=== PATIENT | male | born 1955 | race Two or more races ===

== ENCOUNTER 2018-01-15 11:10 | Inpatient (IN) | payer OTHER ==
[2018-01-15 11:59] VITALS: BMI 23.0
--- NOTE | 2018-01-15 13:40 | HP ---
CIWA Score - CIWA Score Nausea/Vomitin-Mild Nausea/No Vomiting Muscle Tremors: 4-Moderate,w/Arms Extend Anxiety: 4-Mod. Anxious/Guarded Agitation: 4-Moderately Restless Paroxysmal Sweats: 1-Minimal Palms Moist Orientation: 0-Oriented Tacttile Disturbances: 1-Very Mild Itch/Numbness Auditory Disturbances: 0-None Visual Disturbances: 0-None Headache: 1-Very Mild CIWA-Ar Total Score: 16 Admission ROS BHS - HPI Chief Complaint: alcohol withdrawal sx Allergies/Adverse Reactions: Allergies Allergy/AdvReac Type Severity Reaction Status Date / Time No Known Allergies Allergy Verified 01/15/18 13:38 History of Present Illness: 62 years old male with long history of alcohol nicotine dependence has hypertension, psoriasis, and anxiety is admitted to detox Exam Limitations: No Limitations - Ebola screening Have you traveled outside of the country in the last 21 days: No Have you had contact with anyone from an Ebola affected area: No Have you been sick,other than usual withdrawal symptoms: No Do you have a fever: No - Review of Systems Constitutional: Loss of Appetite, Changes in sleep, Unintentional Wgt. Loss, Unexplained wgt Loss EENT: reports: Cataracts (both eyes 2007), Blurred Vision (eye glasses) Respiratory: reports: SOB with Exertion, Productive cough (when smoking cigareet ) Cardiac: reports: No Symptoms Reported GI: reports: Nausea, Poor Fluid Intake, Abdominal cramping : reports: No Symptoms Reported Musculoskeletal: reports: No Symptoms Reported Integumentary: reports: Lesions (hands psoriasis) Neuro: reports: Tremors Endocrine: reports: No Symptoms Reported Hematology: reports: No Symptoms Reported Psychiatric: reports: Judgement Intact, Orientated x3, Anxious Other Systems: Reviewed and Negative Patient History - Patient Medical History Hx Anemia: No Hx Asthma: No Hx Chronic Obstructive Pulmonary Disease (COPD): No Hx Cancer: No Hx Cardiac Disorders: No Hx Congestive Heart Failure: No Hx Hypertension: Yes Hx Hypercholesterolemia: No Hx Pacemaker: No HX Cerebrovascular Accident: No Hx Seizures: No Hx Dementia: No Hx Diabetes: No Hx Gastrointestinal Disorders: No Hx Liver Disease: Yes (2018 liver cirrhosis) Hx Genitourinary Disorders: No Hx Sexually Transmitted Disorders: No Hx Renal Disease (ESRD): No Hx Thyroid Disease: No Hx Human Immunodeficiency Virus (HIV): No Hx Hepatitis C: No Hx Depression: Yes Hx Suicide Attempt: No Hx Bipolar Disorder: No Hx Schizophrenia: No - Patient Surgical History Past Surgical History: Yes Hx Neurologic Surgery: No Hx Cataract Extraction: Yes (bilaterally 2007) Hx Cardiac Surgery: No Hx Lung Surgery: No Hx Breast Surgery: No Hx Breast Biopsy: No Hx Abdominal Surgery: No Hx Appendectomy: Yes (age 42) Hx Cholecystectomy: No Hx Genitourinary Surgery: No Hx Orthopedic Surgery: No Anesthesia Reaction: No - PPD History Previous Implant?: Yes Documented Results: Negative w/o proof Implanted On Prior R Admission?: No PPD to be Administered?: Yes - Smoking Cessation Smoking history: Current every day smoker Have you smoked in the past 12 months: Yes Aproximately how many cigarettes per day: 10 Cigars Per Day: 0 Hx Chewing Tobacco Use: No Initiated information on smoking cessation: Yes 'Breaking Loose' booklet given: 01/15/18 - Substance & Tx. History Hx Alcohol Use: Yes Hx Substance Use: No Substance Use Type: Alcohol Hx Substance Use Treatment: No (first detox) Family Disease History - Family Disease History Family Disease History: Other: Father (), Mother () Other Family History: only child Admission Physical Exam BHS - Vital Signs Vital Signs: Vital Signs - 24 hr 01/15/18 11:57 Temperature 97.2 F L Pulse Rate 79 Respiratory 18 Rate Blood Pressure 129/83 - Physical General Appearance: Yes: Appropriately Dressed, Mild Distress, Alcohol on Breath , Thin, Tremorous, Irritable, Sweating, Anxious HEENTM: Yes: Hearing grossly Normal, Normocephalic, Normal Voice, Other (eye glasses) Respiratory: Yes: Chest Non-Tender, Lungs Clear, Normal Breath Sounds, No Respiratory Distress, No Accessory Muscle Use Neck: Yes: Supple, Trachea in good position Breast: Yes: Breasts Symetrical Cardiology: Yes: Regular Rhythm, Regular Rate, S1, S2 Abdominal: Yes: Normal Bowel Sounds, Non Tender, Flat Genitourinary: Yes: Within Normal Limits Back: Yes: Normal Inspection Musculoskeletal: Yes: full range of Motion, Gait Steady, Back pain, Muscle Pain Extremities: Yes: Normal Inspection, Normal Range of Motion, Non-Tender, Tremors Neurological: Yes: Fully Oriented, Alert, Motor Strength 5/5, Normal Response, Depressed Affect Integumentary: Yes: Warm, Rash (hands + popteal bilaterally) Lymphatic: Yes: Within Normal Limits - Diagnostic (1) Alcohol dependence with uncomplicated withdrawal Current Visit: Yes Status: Acute (2) Nicotine dependence Current Visit: Yes Status: Acute Qualifiers: Nicotine product type: cigarettes Substance use status: in withdrawal Qualified Code(s): F17.213 - Nicotine dependence, cigarettes, with withdrawal (3) Hypertension Current Visit: Yes Status: Chronic Qualifiers: Hypertension type: essential hypertension Qualified Code(s): I10 - Essential (primary) hypertension (4) Cataract Current Visit: Yes Status: Resolved Qualifiers: Cataract type: other Laterality: bilateral Qualified Code(s): H26.8 - Other specified cataract (5) Psoriasis Current Visit: Yes Status: Chronic Cleared for Admission BHS - Detox or Rehab S Level of Care: Medically Managed Detox Regimen/Protocol: Librium S Breath Alcohol Content Breath Alcohol Content: 0.038 Urine Drug Screen - Results Drug Screen Negative: Yes
[2018-01-15] MEDS ORDERED: chlordiazePOXIDE HCL 25 MG CAPSULE PO PRN (13:52)
[2018-01-15] MEDS ORDERED: LOPERAMIDE HCL 2 MG CAPSULE PO PRN (13:52)
[2018-01-15] MEDS ORDERED: P-EPHED 60MG/TRIPROLIDI 2.5MG TABLET PO PRN (13:52)
[2018-01-15] MEDS ORDERED: MAGNESIUM CITRATE 300 ML BOTTLE PO PRN (13:52)
[2018-01-15] MEDS ORDERED: ACETAMINOPHEN 325 MG TABLET (FP) PO PRN (13:52)
[2018-01-15] MEDS ORDERED: MAG HYDROX/AL HYDROX/SIMETH 30 ML UNIT-DOSE CUP PO PRN (13:52)
[2018-01-15] MEDS ORDERED: IBUPROFEN 400 MG TABLET (FP) PO PRN (13:52)
[2018-01-15] MEDS ORDERED: MAGNESIUM HYDROX 2400MG/30ML ORAL SUSPENSION 30 ML CUP PO PRN (13:52)
[2018-01-15] MEDS ORDERED: MENTHOL/PHENOL 1 EACH UD MM PRN (13:52)
[2018-01-15] MEDS ORDERED: NICOTINE POLACRILEX 2 MG GUM BC PRN (13:52)
[2018-01-15] MEDS ORDERED: guaiFENesin/D-METHORPHAN HB 10 ML UNIT-DOSE CUPS PO PRN (13:52)
[2018-01-15] MEDS: TRIAMCINOLONE ACET 0.1% OINT 15 GM TUBE TP SCH ×3 (15:30→22:23)
[2018-01-15] MEDS: NICOTINE 14 MG/24 HOURS TOPICAL PATCH TD SCH (15:48)
--- NOTE | 2018-01-15 17:13 | CONSULT ---
[facility] Psychiatric Consult - Data Date of interview: 01/15/18 Admission source: [facility] Identifying data: Patient is a 62 year old male, father of one, unemployed, financially supported by daughter, and living with his . This is patient's first admission to [facility]. Pt. admitted to for alcohol dependence. Substance Abuse History: Following information confirmed with Mr. Rae: - Smoking Cessation. Smoking history: Current every day smoker. Have you smoked in the past 12 months: Yes. Aproximately how many cigarettes per day: 10. Cigars Per Day: 0. Hx Chewing Tobacco Use: No. Initiated information on smoking cessation: Yes. 'Breaking Loose' booklet given: 01/15/18. - Substance & Tx. History. Hx Alcohol Use: Yes. Hx Substance Use: No. Substance Use Type : Alcohol. Hx Substance Use Treatment: No (first detox) Medical History: Liver Cirrhosis 2018, Appendectomy at age 42, Bilateral cataract extraction 2007 Psychiatric History: Patient denies h/o psychiatric hospitalization, outpatient care, and suicide attempt. Physical/Sexual Abuse/Trauma History: Denies. Mental Status Exam - Mental Status Exam Alert and Oriented to: Time, Place, Person Cognitive Function: Good Patient Appearance: Well Groomed Mood: Euthymic Affect: Mood Congruent Patient Behavior: Appropriate, Cooperative Speech Pattern: Appropriate Voice Loudness: Normal Thought Process: Goal Oriented Thought Disorder: Not Present Hallucinations: Denies Suicidal Ideation: Denies Homicidal Ideation: Denies Insight/Judgement: Poor Sleep: Fair Appetite: Fair Muscle strength/Tone: Normal Gait/Station: Normal Psychiatric Findings - Problem List ([place] 1, 2,3) (1) Alcohol dependence with uncomplicated withdrawal Current Visit: Yes Status: Acute (2) Nicotine dependence Current Visit: Yes Status: Chronic Qualifiers: Nicotine product type: cigarettes Substance use status: in withdrawal Qualified Code(s): F17.213 - Nicotine dependence, cigarettes, with withdrawal - Initial Treatment Plan Initial Treatment Plan: Psychoeducation provided. Detoxification in progress. Observation.
[2018-01-15 18:33] LABS: URINE APPEARANCE SLCLOUDY; URINE BILIRUBIN NEGATIVE (<2.0 mg/dL); URINE COLOR AMBER; URINE GLUCOSE (UA) NEGATIVE (NEGATIVE); URINE KETONE NEGATIVE (NEGATIVE); URINE LEUK ESTERASE NEGATIVE (NEGATIVE); URINE NITRITE NEGATIVE (NEGATIVE); URINE PROTEIN NEGATIVE (NEGATIVE); URINE UROBILINOGEN 4.0 E.U/dl mg/dL (0.2-1.0)
[2018-01-15] MEDS ORDERED: MELATONIN 5 MG TABLETS PO PRN (22:00)
[2018-01-15] MEDS: THIAMINE HCL 100 MG TABLET (FP) PO SCH (22:23)
[2018-01-15] MEDS: chlordiazePOXIDE HCL 25 MG CAPSULE PO SCH (22:24)
[2018-01-16] MEDS: chlordiazePOXIDE HCL 25 MG CAPSULE PO SCH ×4 (06:22→22:34)
[2018-01-16 09:47] LABS: HEMATOCRIT 41.6 % (35.4-49); HEMOGLOBIN 14.1 GM/dL (11.7-16.9); MCH 34.4 pg (25.7-33.7); MCHC 33.9 g/dl (32.0-35.9); MEAN CELL VOLUME 101.6 fl (80-96); MEAN PLT VOLUME 10.8 fl (7.5-11.1); PLATELET COUNT 163 K/MM3 (134-434); RBC 4.09 M/mm3 (4.00-5.60); RDW 13.2 % (11.9-15.9); WHITE BLOOD COUNT 6.7 K/mm3 (4.0-10.0)
[2018-01-16] MEDS ORDERED: ATENOLOL 50 MG TABLET (FP) PO SCH (10:00)
[2018-01-16] MEDS: NICOTINE 14 MG/24 HOURS TOPICAL PATCH TD SCH (10:31)
[2018-01-16] MEDS: PRENATAL VITAMINS W/ FOLIC ACID TABLET (FP) PO SCH (10:31)
[2018-01-16] MEDS: TRIAMCINOLONE ACET 0.1% OINT 15 GM TUBE TP SCH ×4 (10:34→22:36)
[2018-01-16 10:59] LABS: ALBUMIN 3.2 g/dl (3.4-5.0); ANION GAP 7 (8-16); BLOOD UREA NITROGEN 5 mg/dL (7-18); CHLORIDE 107 mmol/L (98-107); CO2 27 mmol/L (21-32); CREATININE 0.5 mg/dL (0.7-1.3); GLUCOSE,RANDOM 93 mg/dL (74-106); POTASSIUM 4.6 mmol/L (3.5-5.1); SGOT/AST 105 U/L (15-37); SGPT/ALT 50 U/L (12-78); SODIUM 141 mmol/L (136-145)
[2018-01-16 11:00] LABS: ALK PHOS 160 U/L (45-117); TOT PROT 7.8 g/dl (6.4-8.2)
[2018-01-16] MEDS: ATENOLOL 50 MG TABLET (FP) PO SCH (11:00)
--- NOTE | 2018-01-16 11:31 | EKG ---
Test Reason : Blood Pressure : / mmHG Vent. Rate : 079 BPM Atrial Rate : 079 BPM P-R Int : 146 ms QRS Dur : 074 ms QT Int : 402 ms P-R-T Axes : 067 034 001 degrees QTc Int : 460 ms NORMAL SINUS RHYTHM NORMAL ECG NO PREVIOUS ECGS AVAILABLE Confirmed by KERRIE SALEEM MD ([id number]) on 01/16/2018 11:31:21 AM Referred By: Confirmed By:KERRIE SALEEM MD
--- NOTE | 2018-01-16 11:38 | PN ---
S CIWA - CIWA Score Nausea/Vomitin Muscle Tremors: 3 Anxiety: 2 Agitation: 2 Paroxysmal Sweats: 1-Minimal Palms Moist Orientation: 0-Oriented Tacttile Disturbances: 1-Very Mild Itch/Numbness Auditory Disturbances: 1-Very Mild Visual Disturbances: 0-None Headache: 2-Mild CIWA-Ar Total Score: 15 S Progress Note (SOAP) Subjective: ALERT,IRRITABLE,ANXIOUS,INTERRUPTED SLEEP,TREMOR Objective: 01/16/18 11:35 Vital Signs Temperature 97.7 F 01/16/18 09:30 Pulse Rate 77 01/16/18 09:30 Respiratory Rate 16 01/16/18 09:30 Blood Pressure 133/77 01/16/18 09:30 O2 Sat by Pulse Oximetry (%) EKG NSR,NORMAL ECG PROLONG QT 402/460 NO CHEST PAIN,NO SOB,NO DIZZINESS Laboratory Last Values WBC 6.7 K/mm3 (4.0-10.0) 01/16/18 06:00 RBC 4.09 M/mm3 (4.00-5.60) 01/16/18 06:00 Hgb 14.1 GM/dL (11.7-16.9) 01/16/18 06:00 Hct 41.6 % (35.4-49) 01/16/18 06:00 MCV 101.6 fl (80-96) H 01/16/18 06:00 MCH 34.4 pg (25.7-33.7) H 01/16/18 06:00 MCHC 33.9 g/dl (32.0-35.9) 01/16/18 06:00 RDW 13.2 % (11.9-15.9) 01/16/18 06:00 Plt Count 163 K/MM3 (134-434) 01/16/18 06:00 MPV 10.8 fl (7.5-11.1) 01/16/18 06:00 Sodium 141 mmol/L (136-145) 01/16/18 06:00 Potassium 4.6 mmol/L (3.5-5.1) 01/16/18 06:00 Chloride 107 mmol/L (98-107) 01/16/18 06:00 Carbon Dioxide 27 mmol/L (21-32) 01/16/18 06:00 Anion Gap 7 (8-16) L 01/16/18 06:00 BUN 5 mg/dL (7-18) L 01/16/18 06:00 Creatinine 0.5 mg/dL (0.7-1.3) L 01/16/18 06:00 Creat Clearance w eGFR > 60 (>60) 01/16/18 06:00 Random Glucose 93 mg/dL (74-106) 01/16/18 06:00 Calcium 9.0 mg/dL (8.5-10.1) 01/16/18 06:00 Total Bilirubin 1.0 mg/dL (0.2-1.0) 01/16/18 06:00 AST 105 U/L (15-37) H 01/16/18 06:00 ALT 50 U/L (12-78) 01/16/18 06:00 Alkaline Phosphatase 160 U/L (45-117) H 01/16/18 06:00 Total Protein 7.8 g/dl (6.4-8.2) 01/16/18 06:00 Albumin 3.2 g/dl (3.4-5.0) L 01/16/18 06:00 Urine Color [place] 01/15/18 15:00 Urine Appearance Slcloudy 01/15/18 15:00 Urine pH 6.0 (5.0-8.0) 01/15/18 15:00 Ur Specific [place] 1.018 (1.001-1.035) 01/15/18 15:00 Urine Protein Negative (NEGATIVE) 01/15/18 15:00 Urine Glucose (UA) Negative (NEGATIVE) 01/15/18 15:00 Urine Ketones Negative (NEGATIVE) 01/15/18 15:00 Urine Blood Negative (NEGATIVE) 01/15/18 15:00 Urine Nitrite Negative (NEGATIVE) 01/15/18 15:00 Urine Bilirubin Negative (<2.0 mg/dL) 01/15/18 15:00 Urine Urobilinogen 4.0 e.u/dl mg/dL (0.2-1.0) 01/15/18 15:00 Ur Leukocyte Esterase Negative (NEGATIVE) 01/15/18 15:00 01/16/18 11:37 RPR PENDING Assessment: 01/16/18 11:37 WITHDRAWAL SYMPTOM Plan: CONTINUE DETOX
--- NOTE | 2018-01-16 19:39 | PN ---
[facility] Progress Note Note: Patient c/o of mild left upper quadrant pain. Denies nausea, vomiting, diarrhea , melena, chest pain, SOB Vital Signs Temperature 98.2 F 01/16/18 17:53 Pulse Rate 70 01/16/18 17:53 Respiratory Rate 18 01/16/18 17:53 Blood Pressure 128/78 01/16/18 17:53 O2 Sat by Pulse Oximetry (%) A/P Patient AOx3, no apparent distress + dry mucous membranes, cheilithis Normal HR and rhythm Lungs clear though out BS x4, non tender, no guarding Skin intact, no edema - Abdominal pain Plan: Increase fluids Continue detox Continue to monitor for worsening symptoms
[2018-01-16] MEDS: THIAMINE HCL 100 MG TABLET (FP) PO SCH (22:34)
[2018-01-17] MEDS: chlordiazePOXIDE HCL 25 MG CAPSULE PO SCH ×3 (06:50→18:34)
[2018-01-17] MEDS: TRIAMCINOLONE ACET 0.1% OINT 15 GM TUBE TP SCH ×4 (10:47→22:26)
[2018-01-17] MEDS: NICOTINE 14 MG/24 HOURS TOPICAL PATCH TD SCH (10:48)
[2018-01-17] MEDS: PRENATAL VITAMINS W/ FOLIC ACID TABLET (FP) PO SCH (10:48)
[2018-01-17] MEDS: ATENOLOL 50 MG TABLET (FP) PO SCH (10:48)
--- NOTE | 2018-01-17 13:10 | PN ---
S CIWA - CIWA Score Nausea/Vomitin Muscle Tremors: 3 Anxiety: 2 Agitation: 2 Paroxysmal Sweats: 1-Minimal Palms Moist Orientation: 0-Oriented Tacttile Disturbances: 1-Very Mild Itch/Numbness Auditory Disturbances: 0-None Visual Disturbances: 0-None Headache: 2-Mild CIWA-Ar Total Score: 14 S Progress Note (SOAP) Subjective: ALERT,IRRITABLE,INTERRUPTED SLEEP,TREMOR Objective: 01/17/18 13:06 Vital Signs Temperature 97.3 F L 01/17/18 10:21 Pulse Rate 76 01/17/18 10:21 Respiratory Rate 18 01/17/18 10:21 Blood Pressure 107/68 01/17/18 10:21 O2 Sat by Pulse Oximetry (%) Laboratory Last Values WBC 6.7 K/mm3 (4.0-10.0) 01/16/18 06:00 RBC 4.09 M/mm3 (4.00-5.60) 01/16/18 06:00 Hgb 14.1 GM/dL (11.7-16.9) 01/16/18 06:00 Hct 41.6 % (35.4-49) 01/16/18 06:00 MCV 101.6 fl (80-96) H 01/16/18 06:00 MCH 34.4 pg (25.7-33.7) H 01/16/18 06:00 MCHC 33.9 g/dl (32.0-35.9) 01/16/18 06:00 RDW 13.2 % (11.9-15.9) 01/16/18 06:00 Plt Count 163 K/MM3 (134-434) 01/16/18 06:00 MPV 10.8 fl (7.5-11.1) 01/16/18 06:00 Sodium 141 mmol/L (136-145) 01/16/18 06:00 Potassium 4.6 mmol/L (3.5-5.1) 01/16/18 06:00 Chloride 107 mmol/L (98-107) 01/16/18 06:00 Carbon Dioxide 27 mmol/L (21-32) 01/16/18 06:00 Anion Gap 7 (8-16) L 01/16/18 06:00 BUN 5 mg/dL (7-18) L 01/16/18 06:00 Creatinine 0.5 mg/dL (0.7-1.3) L 01/16/18 06:00 Creat Clearance w eGFR > 60 (>60) 01/16/18 06:00 Random Glucose 93 mg/dL (74-106) 01/16/18 06:00 Calcium 9.0 mg/dL (8.5-10.1) 01/16/18 06:00 Total Bilirubin 1.0 mg/dL (0.2-1.0) 01/16/18 06:00 AST 105 U/L (15-37) H 01/16/18 06:00 ALT 50 U/L (12-78) 01/16/18 06:00 Alkaline Phosphatase 160 U/L (45-117) H 01/16/18 06:00 Total Protein 7.8 g/dl (6.4-8.2) 01/16/18 06:00 Albumin 3.2 g/dl (3.4-5.0) L 01/16/18 06:00 Urine Color [place] 01/15/18 15:00 Urine Appearance Slcloudy 01/15/18 15:00 Urine pH 6.0 (5.0-8.0) 01/15/18 15:00 Ur Specific [place] 1.018 (1.001-1.035) 01/15/18 15:00 Urine Protein Negative (NEGATIVE) 01/15/18 15:00 Urine Glucose (UA) Negative (NEGATIVE) 01/15/18 15:00 Urine Ketones Negative (NEGATIVE) 01/15/18 15:00 Urine Blood Negative (NEGATIVE) 01/15/18 15:00 Urine Nitrite Negative (NEGATIVE) 01/15/18 15:00 Urine Bilirubin Negative (<2.0 mg/dL) 01/15/18 15:00 Urine Urobilinogen 4.0 e.u/dl mg/dL (0.2-1.0) 01/15/18 15:00 Ur Leukocyte Esterase Negative (NEGATIVE) 01/15/18 15:00 RPR Titer Nonreactive (NONREACTIVE) 01/16/18 06:00 Assessment: 01/17/18 13:09 WITHDRAWAL SYMPTOM Plan: CONTINUE DETOX
[2018-01-17] MEDS: chlordiazePOXIDE 5 MG CAPSULE PO SCH (22:23)
[2018-01-17] MEDS: THIAMINE HCL 100 MG TABLET (FP) PO SCH (22:24)
[2018-01-18] MEDS: chlordiazePOXIDE 5 MG CAPSULE PO SCH ×3 (05:50→17:46)
[2018-01-18] MEDS: PRENATAL VITAMINS W/ FOLIC ACID TABLET (FP) PO SCH (10:33)
[2018-01-18] MEDS: TRIAMCINOLONE ACET 0.1% OINT 15 GM TUBE TP SCH ×4 (10:33→22:28)
[2018-01-18] MEDS: ATENOLOL 50 MG TABLET (FP) PO SCH (10:34)
[2018-01-18] MEDS: NICOTINE 14 MG/24 HOURS TOPICAL PATCH TD SCH (10:34)
--- NOTE | 2018-01-18 10:56 | PN ---
BHS Progress Note (SOAP) Subjective: Mild anxiety and interrupted sleep Objective: 01/18/18 10:55 Vital Signs 01/18/18 01/18/18 01/18/18 03:30 06:14 06:30 Temperature 98.2 F Pulse Rate 80 Respiratory 18 16 18 Rate Blood Pressure 102/63 01/18/18 10:00 Temperature 97.7 F Pulse Rate 72 Respiratory 18 Rate Blood Pressure 97/61 Laboratory Last Values WBC 6.7 K/mm3 (4.0-10.0) 01/16/18 06:00 RBC 4.09 M/mm3 (4.00-5.60) 01/16/18 06:00 Hgb 14.1 GM/dL (11.7-16.9) 01/16/18 06:00 Hct 41.6 % (35.4-49) 01/16/18 06:00 MCV 101.6 fl (80-96) H 01/16/18 06:00 MCH 34.4 pg (25.7-33.7) H 01/16/18 06:00 MCHC 33.9 g/dl (32.0-35.9) 01/16/18 06:00 RDW 13.2 % (11.9-15.9) 01/16/18 06:00 Plt Count 163 K/MM3 (134-434) 01/16/18 06:00 MPV 10.8 fl (7.5-11.1) 01/16/18 06:00 Sodium 141 mmol/L (136-145) 01/16/18 06:00 Potassium 4.6 mmol/L (3.5-5.1) 01/16/18 06:00 Chloride 107 mmol/L (98-107) 01/16/18 06:00 Carbon Dioxide 27 mmol/L (21-32) 01/16/18 06:00 Anion Gap 7 (8-16) L 01/16/18 06:00 BUN 5 mg/dL (7-18) L 01/16/18 06:00 Creatinine 0.5 mg/dL (0.7-1.3) L 01/16/18 06:00 Creat Clearance w eGFR > 60 (>60) 01/16/18 06:00 Random Glucose 93 mg/dL (74-106) 01/16/18 06:00 Calcium 9.0 mg/dL (8.5-10.1) 01/16/18 06:00 Total Bilirubin 1.0 mg/dL (0.2-1.0) 01/16/18 06:00 AST 105 U/L (15-37) H 01/16/18 06:00 ALT 50 U/L (12-78) 01/16/18 06:00 Alkaline Phosphatase 160 U/L (45-117) H 01/16/18 06:00 Total Protein 7.8 g/dl (6.4-8.2) 01/16/18 06:00 Albumin 3.2 g/dl (3.4-5.0) L 01/16/18 06:00 Urine Color [place] 01/15/18 15:00 Urine Appearance Slcloudy 01/15/18 15:00 Urine pH 6.0 (5.0-8.0) 01/15/18 15:00 Ur Specific [place] 1.018 (1.001-1.035) 01/15/18 15:00 Urine Protein Negative (NEGATIVE) 01/15/18 15:00 Urine Glucose (UA) Negative (NEGATIVE) 01/15/18 15:00 Urine Ketones Negative (NEGATIVE) 01/15/18 15:00 Urine Blood Negative (NEGATIVE) 01/15/18 15:00 Urine Nitrite Negative (NEGATIVE) 01/15/18 15:00 Urine Bilirubin Negative (<2.0 mg/dL) 01/15/18 15:00 Urine Urobilinogen 4.0 e.u/dl mg/dL (0.2-1.0) 01/15/18 15:00 Ur Leukocyte Esterase Negative (NEGATIVE) 01/15/18 15:00 RPR Titer Nonreactive (NONREACTIVE) 01/16/18 06:00 Labs noted Assessment: 01/18/18 10:55 Withdrawal sx Plan: Continue detox
[2018-01-18] MEDS: THIAMINE HCL 100 MG TABLET (FP) PO SCH (22:28)
[2018-01-18] MEDS: chlordiazePOXIDE HCL 10 MG CAPSULE PO SCH (22:28)
[2018-01-19] MEDS: chlordiazePOXIDE HCL 10 MG CAPSULE PO SCH (05:25)
[2018-01-19 10:28] VITALS: BP 122/79; PULSE 78; TEMP 97.7
--- NOTE | 2018-01-19 12:45 | DS ---
[facility] Detox Discharge Summary Admission Date: 01/15/18 - History Present History: Alcohol Dependence Pertinent Past History: HTN Psoriasis Hepatitis C - Physical Exam Results Vital Signs: Vital Signs Temperature 97.7 F 01/19/18 10:04 Pulse Rate 78 01/19/18 10:04 Respiratory Rate 16 01/19/18 10:04 Blood Pressure 122/79 01/19/18 10:04 O2 Sat by Pulse Oximetry (%) - Treatment Hospital Course: Detox Protocol Followed, Detoxed Safely, Responded well, Discharged Condition Good - Medication Discharge Medications: Ambulatory Orders Atenolol [Tenormin -] 50 mg PO DAILY 01/15/18 - Diagnosis (1) Depression Status: Chronic (2) Anxiety Status: Chronic (3) Hepatitis C Status: Chronic (4) Alcohol dependence with uncomplicated withdrawal Status: Acute (5) Hypertension Status: Chronic Qualifiers: Hypertension type: essential hypertension Qualified Code(s): I10 - Essential (primary) hypertension (6) Nicotine dependence Status: Chronic Qualifiers: Nicotine product type: cigarettes Substance use status: in withdrawal Qualified Code(s): F17.213 - Nicotine dependence, cigarettes, with withdrawal (7) Psoriasis Status: Chronic - AMA Did Patient Leave Against Medical Advice: No (Follow up with your PCP within 1- 2 weeks)
== END 2018-01-19 09:20 | disposition home or self-care (01) | DRG 775 ==
LOC: YASAS 11:10 → Y6N 14:29
PROVIDERS: ADMIT Internal Medicine; ATTEND Internal Medicine
PROC: HZ2ZZZZ Detoxification Services for Substance Abuse Treatment (ICD-10-PCS; principal; 2018-01-15)
DX: F10.230 Alcohol dependence with withdrawal, uncomplicated (principal); F17.213 Nicotine dependence, cigarettes, with withdrawal; F32.9 Major depressive disorder, single episode, unspecified; F41.9 Anxiety disorder, unspecified; I10 Essential (primary) hypertension; L40.9 Psoriasis, unspecified
CPT/HCPCS: 36415; 80053; 81003; 85027; 86593; 93005; 93010

== ENCOUNTER 2018-12-22 10:23 | Inpatient (IN) | payer OTHER ==
[2018-12-22 12:19] VITALS: BMI 23.3
--- NOTE | 2018-12-22 13:20 | HP ---
COWS - Scale Resting Pulse: 1= [place] 81-100 Sweatin= Chills/Flushing CIWA Score Nausea/Vomitin Muscle Tremors: 2 Anxiety: 2 Agitation: 2 Paroxysmal Sweats: 1-Minimal Palms Moist Orientation: 0-Oriented Tacttile Disturbances: 1-Very Mild Itch/Numbness Auditory Disturbances: 1-Very Mild Visual Disturbances: 0-None Headache: 2-Mild CIWA-Ar Total Score: 13 - Admission Criteria [facility] Guidelines: Admission for Medically Managed Detox: Requires at least one of the followin. CIWA greater than 12 2. Seizures within the past 24 hours 3. Delirium tremens within the past 24 hours 4. Hallucinations within the past 24 hours 5. Acute intervention needed for co occurring medical disorder 6. Acute intervention needed for co occurring psychiatric disorder 7. Severe withdrawal that cannot be handled at a lower level of care (continued vomiting, continued diarrhea, abnormal vital signs) requiring intravenous medication and/or fluids 8. Admission ROS BHS - HPI Chief Complaint: i need help to stop drinking alcohol Allergies/Adverse Reactions: Allergies Allergy/AdvReac Type Severity Reaction Status Date / Time No Known Allergies Allergy Verified 01/15/18 13:38 History of Present Illness: this 63 years old male wit alcohol dependence,seeking detox,withdrawal symptom, last treatment in 01/15/18 to 01/19/18 hypertension on medication psoriasis both hands nicotine dependence 8 cigarette/day,do not want to have nicotine replacement longest sobriety 20 years plan for out patient program after detox Exam Limitations: No Limitations - Ebola screening Have you traveled outside of the country in the last 21 days: No Have you had contact with anyone from an Ebola affected area: No - Review of Systems Constitutional: Loss of Appetite, Malaise, Night Sweats, Changes in sleep EENT: reports: Nose Congestion Respiratory: reports: No Symptoms reported Cardiac: reports: No Symptoms Reported GI: reports: Nausea, Abdominal cramping : reports: No Symptoms Reported Musculoskeletal: reports: Back Pain, Muscle Pain Integumentary: reports: Dryness Neuro: reports: Headache, Tremors Endocrine: reports: No Symptoms Reported Hematology: reports: No Symptoms Reported Psychiatric: reports: No Sypmtoms Reported, Judgement Intact, Mood/Affect Appropiate, Orientated x3 Other Systems: Reviewed and Negative Patient History - Patient Medical History Hx Anemia: No Hx Asthma: No Hx Chronic Obstructive Pulmonary Disease (COPD): No Hx Cancer: No Hx Cardiac Disorders: No Hx Congestive Heart Failure: No Hx Hypertension: Yes (on medication) Hx Hypercholesterolemia: No Hx Pacemaker: No HX Cerebrovascular Accident: No Hx Seizures: No Hx Dementia: No Hx Diabetes: No Hx Gastrointestinal Disorders: No Hx Liver Disease: Yes (2018 liver cirrhosis begining) Hx Genitourinary Disorders: No Hx Sexually Transmitted Disorders: No Hx Renal Disease (ESRD): No Hx Thyroid Disease: No Hx Human Immunodeficiency Virus (HIV): No (never been tested,do not want the test done) Hx Hepatitis C: Yes (follow up with pmd no treatment need it) Hx Depression: Yes Hx Suicide Attempt: No Hx Bipolar Disorder: No Hx Schizophrenia: No Other Medical History: no suicidal,no homicidal - Patient Surgical History Past Surgical History: Yes Hx Neurologic Surgery: No Hx Cataract Extraction: Yes (bilaterally 2007) Hx Cardiac Surgery: No Hx Lung Surgery: No Hx Breast Surgery: No Hx Breast Biopsy: No Hx Abdominal Surgery: No Hx Appendectomy: Yes (age 13) Hx Cholecystectomy: No Hx Genitourinary Surgery: No Hx Section: No Hx Orthopedic Surgery: No Anesthesia Reaction: No - PPD History Previous Implant?: Yes Documented Results: Negative w/proof Implanted On Prior R Admission?: Yes Date: 01/17/18 Results: 10 mm PPD to be Administered?: No - Smoking Cessation Smoking history: Current every day smoker Have you smoked in the past 12 months: Yes Aproximately how many cigarettes per day: 8 Cigars Per Day: 0 Hx Chewing Tobacco Use: No Initiated information on smoking cessation: Yes 'Breaking Loose' booklet given: 12/22/18 - Substance & Tx. History Hx Alcohol Use: Yes Hx Substance Use: No Substance Use Type: Alcohol Hx Substance Use Treatment: Yes ([facility] 01/15/18 to 01/19/18) - Substances abused Alcohol Substance route: Oral Frequency: Daily Amount used: 350 cc of voldka Age of first use: 28 Date of last use: 12/21/18 Family Disease History - Family Disease History Family Disease History: Other: Father (), Mother () Admission Physical Exam BHS - Vital Signs Vital Signs: Vital Signs - 24 hr 12/22/18 12/22/18 11:56 13:05 Temperature 98.1 F 98.1 F Pulse Rate 98 H 98 H Respiratory 16 16 Rate Blood Pressure 188/96 H 188/96 H - Physical General Appearance: Yes: Moderate Distress, Tremorous, Irritable, Sweating, Anxious HEENTM: Yes: Normal ENT Inspection, YAIR, Pharynx Normal Respiratory: Yes: Lungs Clear, Normal Breath Sounds, No Respiratory Distress Neck: Yes: Within Normal Limits, Supple, Trachea in good position Breast: Yes: Within Normal Limits Cardiology: Yes: Within Normal Limits, Regular Rhythm, Regular Rate, S1, S2 Abdominal: Yes: Within Normal Limits, Normal Bowel Sounds, Non Tender, Flat Genitourinary: Yes: Within Normal Limits Back: Yes: Muscle Spasm Musculoskeletal: Yes: Back pain, Muscle Pain Extremities: Yes: Tremors Neurological: Yes: gasket inspector II-XII NML intact, Alert, Motor Strength 5/5 Integumentary: Yes: Dry Lymphatic: Yes: Within Normal Limits - Diagnostic (1) Alcohol dependence with uncomplicated withdrawal Current Visit: No Status: Acute (2) Hepatitis C Current Visit: No Status: Chronic (3) Hypertension Current Visit: No Status: Chronic Qualifiers: Hypertension type: essential hypertension Qualified Code(s): I10 - Essential (primary) hypertension (4) Nicotine dependence Current Visit: No Status: Chronic Qualifiers: Nicotine product type: cigarettes Substance use status: in withdrawal Qualified Code(s): F17.213 - Nicotine dependence, cigarettes, with withdrawal (5) Psoriasis Current Visit: No Status: Chronic (6) Cataract Current Visit: No Status: Resolved Qualifiers: Cataract type: other Laterality: bilateral Qualified Code(s): H26.8 - Other specified cataract Cleared for Admission S - Detox or Rehab [facility] Level of Care: Medically Managed Detox Regimen/Protocol: Valium Breathalyzer - Breathalyzer Breathalyzer: 0.001 Urine Drug Screen - Test Device Lot number: [id number] Expiration date: 08/15/20 - Control Is test valid?: Yes - Results Drug screen NEGATIVE: Yes Inpatient Rehab Admission - Rehab Decision to Admit Inpatient rehab admission?: No
[2018-12-22] MEDS ORDERED: ACETAMINOPHEN 325 MG TABLET (FP) PO PRN ×2 (13:34)
[2018-12-22] MEDS ORDERED: BISMUTH SUBSALICYLATE 262 MG/15 ML BTL PO PRN (13:34)
[2018-12-22] MEDS ORDERED: MENTHOL/PHENOL 1 EACH UD MM PRN (13:34)
[2018-12-22] MEDS ORDERED: MELATONIN 5 MG TABLETS PO PRN (13:34)
[2018-12-22] MEDS ORDERED: diazePAM 5 MG TABLET PO PRN (13:34)
[2018-12-22] MEDS ORDERED: MAGNESIUM CITRATE 300 ML BOTTLE PO PRN (13:34)
[2018-12-22] MEDS ORDERED: MAGNESIUM HYDROX 2400MG/30ML ORAL SUSPENSION 30 ML CUP PO PRN (13:34)
[2018-12-22] MEDS ORDERED: IBUPROFEN 400 MG TABLET (FP) PO PRN (13:34)
[2018-12-22] MEDS ORDERED: METHOCARBAMOL 500 MG TABLET PO PRN (13:34)
[2018-12-22] MEDS ORDERED: MAG HYDROX/AL HYDROX/SIMETH 30 ML UNIT-DOSE CUP PO PRN (13:34)
[2018-12-22] MEDS ORDERED: hydrOXYzine PAMOATE 25 MG CAPSULE (FP) PO PRN (13:34)
[2018-12-22] MEDS ORDERED: COLLOIDAL OATMEAL 1 BAR EACH TP PRN (13:51)
[2018-12-22 17:09] LABS: HEMOGLOBIN 14.6 GM/dL (11.7-16.9); MCH 33.3 pg (25.7-33.7); MCHC 33.9 g/dl (32.0-35.9); MEAN PLT VOLUME 9.3 fl (7.5-11.1); PLATELET COUNT 137 K/MM3 (134-434); RBC 4.38 M/mm3 (4.00-5.60); RDW 13.5 % (11.9-15.9); WHITE BLOOD COUNT 8.3 K/mm3 (4.0-10.0)
[2018-12-22 17:22] LABS: ALBUMIN 3.8 g/dl (3.4-5.0); ALK PHOS 120 U/L (45-117); ANION GAP 10 MMOL/L (8-16); BILIRUBIN,TOTAL 1.5 mg/dL (0.2-1); BLOOD UREA NITROGEN 14 mg/dL (7-18); CALCIUM 9.5 mg/dL (8.5-10.1); CHLORIDE 104 mmol/L (98-107); CO2 23 mmol/L (21-32); CREATININE 0.5 mg/dL (0.55-1.3); GLUCOSE,RANDOM 92 mg/dL (74-106); POTASSIUM 4.1 mmol/L (3.5-5.1); SGOT/AST 52 U/L (15-37); SGPT/ALT 33 U/L (13-61); SODIUM 137 mmol/L (136-145); TOT PROT 8.2 g/dl (6.4-8.2)
[2018-12-22] MEDS: THIAMINE HCL 100 MG TABLET (FP) PO SCH (22:04)
[2018-12-22] MEDS: diazePAM 5 MG TABLET PO SCH (22:04)
[2018-12-22] MEDS: PATIENT'S OWN MEDICATION (NON-FORMULARY) (Halobetasol Prop 0.05% Tp Crm 1 APPLIC) ID SCH (22:08)
[2018-12-23] MEDS: diazePAM 5 MG TABLET PO SCH ×3 (06:17→21:54)
[2018-12-23] MEDS: PATIENT'S OWN MEDICATION (NON-FORMULARY) (Halobetasol Prop 0.05% Tp Crm 1 APPLIC) ID SCH ×2 (10:06→21:56)
[2018-12-23] MEDS: ATENOLOL 50 MG TABLET (FP) PO SCH (10:06)
[2018-12-23] MEDS: PRENATAL VITAMINS W/ FOLIC ACID TABLET (FP) PO SCH (10:06)
--- NOTE | 2018-12-23 10:37 | PN ---
S CIWA - CIWA Score Nausea/Vomitin Muscle Tremors: 2 Anxiety: 2 Agitation: 2 Paroxysmal Sweats: 1-Minimal Palms Moist Orientation: 0-Oriented Tacttile Disturbances: 1-Very Mild Itch/Numbness Auditory Disturbances: 1-Very Mild Visual Disturbances: 0-None Headache: 2-Mild CIWA-Ar Total Score: 13 BHS Progress Note (SOAP) Subjective: alert,irritable,anxious,interrupted sleep,tremor Objective: 12/23/18 10:36 Vital Signs Temperature 98.2 F 12/23/18 09:36 Pulse Rate 78 12/23/18 09:36 Respiratory Rate 18 12/23/18 09:36 Blood Pressure 141/87 12/23/18 09:36 O2 Sat by Pulse Oximetry (%) Laboratory Last Values WBC 8.3 K/mm3 (4.0-10.0) 12/22/18 13:50 RBC 4.38 M/mm3 (4.00-5.60) 12/22/18 13:50 Hgb 14.6 GM/dL (11.7-16.9) 12/22/18 13:50 Hct 43.0 % (35.4-49) 12/22/18 13:50 MCV 98.0 fl (80-96) H 12/22/18 13:50 MCH 33.3 pg (25.7-33.7) 12/22/18 13:50 MCHC 33.9 g/dl (32.0-35.9) 12/22/18 13:50 RDW 13.5 % (11.9-15.9) 12/22/18 13:50 Plt Count 137 K/MM3 (134-434) 12/22/18 13:50 MPV 9.3 fl (7.5-11.1) D 12/22/18 13:50 Sodium 137 mmol/L (136-145) 12/22/18 13:50 Potassium 4.1 mmol/L (3.5-5.1) 12/22/18 13:50 Chloride 104 mmol/L (98-107) 12/22/18 13:50 Carbon Dioxide 23 mmol/L (21-32) 12/22/18 13:50 Anion Gap 10 MMOL/L (8-16) 12/22/18 13:50 BUN 14 mg/dL (7-18) 12/22/18 13:50 Creatinine 0.5 mg/dL (0.55-1.3) L 12/22/18 13:50 Creat Clearance w eGFR 166.88 (>60) 12/22/18 13:50 Random Glucose 92 mg/dL (74-106) 12/22/18 13:50 Calcium 9.5 mg/dL (8.5-10.1) 12/22/18 13:50 Total Bilirubin 1.5 mg/dL (0.2-1) H 12/22/18 13:50 AST 52 U/L (15-37) H 12/22/18 13:50 ALT 33 U/L (13-61) 12/22/18 13:50 Alkaline Phosphatase 120 U/L (45-117) H 12/22/18 13:50 Total Protein 8.2 g/dl (6.4-8.2) 12/22/18 13:50 Albumin 3.8 g/dl (3.4-5.0) 12/22/18 13:50 RPR Titer Nonreactive (NONREACTIVE) 12/22/18 13:50 Assessment: 12/23/18 10:37 withdrawal symptom Plan: continue detox
[2018-12-23] MEDS ORDERED: hydrOXYzine HCL 25 MG TABLET (FP) PO PRN (18:40)
[2018-12-23] MEDS: THIAMINE HCL 100 MG TABLET (FP) PO SCH (21:54)
[2018-12-24] MEDS: PRENATAL VITAMINS W/ FOLIC ACID TABLET (FP) PO SCH (10:20)
[2018-12-24] MEDS: ATENOLOL 50 MG TABLET (FP) PO SCH (10:20)
[2018-12-24] MEDS: diazePAM 5 MG TABLET PO SCH ×2 (10:20→22:10)
[2018-12-24] MEDS: PATIENT'S OWN MEDICATION (NON-FORMULARY) (Halobetasol Prop 0.05% Tp Crm 1 APPLIC) ID SCH ×2 (10:20→22:10)
--- NOTE | 2018-12-24 14:19 | PN ---
S CIWA - CIWA Score Nausea/Vomitin-Mild Nausea/No Vomiting Muscle Tremors: 1-None Visible, but [place] Anxiety: 1-Mildly Anxious Agitation: 0-Normal Activity Paroxysmal Sweats: No Perspiration Orientation: 0-Oriented Tacttile Disturbances: 0-None Auditory Disturbances: 0-None Visual Disturbances: 0-None Headache: 0-None Present CIWA-Ar Total Score: 3 BHS Progress Note (SOAP) Subjective: pt states he is doing well with the alcohol detox protocol O: Vital Signs - 24 hr 12/23/18 12/23/18 12/24/18 17:17 21:50 00:30 Temperature 98.1 F 98.2 F Pulse Rate 63 73 Respiratory 16 18 20 Rate Blood Pressure 126/69 140/74 12/24/18 12/24/18 12/24/18 03:30 07:04 09:22 Temperature 97.7 F 97.2 F L Pulse Rate 74 70 Respiratory 18 18 18 Rate Blood Pressure 132/90 131/83 12/24/18 13:45 Temperature 98.6 F Pulse Rate 63 Respiratory 18 Rate Blood Pressure 127/78 Laboratory Tests 12/22/18 12/22/18 12/22/18 13:50 13:50 13:50 WBC 8.3 RBC 4.38 Hgb 14.6 Hct 43.0 MCV 98.0 H MCH 33.3 MCHC 33.9 RDW 13.5 Plt Count 137 MPV 9.3 D Sodium 137 Potassium 4.1 Chloride 104 Carbon Dioxide 23 Anion Gap 10 BUN 14 Creatinine 0.5 L Creat Clearance w eGFR 166.88 Random Glucose 92 Calcium 9.5 Total Bilirubin 1.5 H AST 52 H ALT 33 Alkaline Phosphatase 120 H Total Protein 8.2 Albumin 3.8 RPR Titer Nonreactive a/p: continue alcohol detox protocol- pt without complaints nl labs/VS.
[2018-12-24] MEDS: THIAMINE HCL 100 MG TABLET (FP) PO SCH (22:10)
[2018-12-25] MEDS ORDERED: diazePAM 5 MG TABLET PO SCH (06:00)
--- NOTE | 2018-12-25 08:55 | DS ---
[facility] Detox Discharge Summary Admission Date: 12/22/18 Discharge Date: 12/25/18 - History Present History: Alcohol Dependence - Physical Exam Results Vital Signs: Vital Signs Temperature 97.3 F L 12/25/18 06:23 Pulse Rate 65 12/25/18 06:23 Respiratory Rate 16 12/25/18 06:23 Blood Pressure 133/80 12/25/18 06:23 O2 Sat by Pulse Oximetry (%) - Treatment Hospital Course: Detox Protocol Followed, Detoxed Safely, Responded well, Discharged Condition Good, Rehab Referral Accepted - Medication Discharge Medications: Ambulatory Orders Atenolol [Tenormin -] 50 mg PO DAILY 01/15/18 Halobetasol Prop 0.05% Tp Crm 1 applic ID BID 12/22/18 - Diagnosis (1) Alcohol dependence with uncomplicated withdrawal Current Visit: Yes Status: Chronic (2) Anxiety Current Visit: No Status: Chronic (3) Depression Current Visit: No Status: Chronic (4) Hepatitis C Current Visit: No Status: Chronic (5) Hypertension Current Visit: No Status: Chronic Qualifiers: Hypertension type: essential hypertension Qualified Code(s): I10 - Essential (primary) hypertension (6) Nicotine dependence Current Visit: Yes Status: Chronic Qualifiers: Nicotine product type: cigarettes Substance use status: uncomplicated Qualified Code(s): F17.210 - Nicotine dependence, cigarettes, uncomplicated (7) Psoriasis Current Visit: No Status: Chronic (8) Cataract Current Visit: No Status: Resolved Qualifiers: Cataract type: other Laterality: bilateral Qualified Code(s): H26.8 - Other specified cataract - AMA Did Patient Leave Against Medical Advice: No (referred to outpatient reb )
[2018-12-25 09:06] VITALS: BP 137/79; PULSE 68; TEMP 97.5
[2018-12-25] MEDS: ATENOLOL 50 MG TABLET (FP) PO SCH (09:23)
[2018-12-25] MEDS: PRENATAL VITAMINS W/ FOLIC ACID TABLET (FP) PO SCH (09:23)
[2018-12-25] MEDS: PATIENT'S OWN MEDICATION (NON-FORMULARY) (Halobetasol Prop 0.05% Tp Crm 1 APPLIC) ID SCH (09:25)
== END 2018-12-25 09:32 | disposition home or self-care (01) | DRG 775 ==
LOC: YASAS 10:23 → Y6N 14:24
PROVIDERS: ADMIT Surgery; ATTEND Surgery
PROC: HZ2ZZZZ Detoxification Services for Substance Abuse Treatment (ICD-10-PCS; principal; 2018-12-22)
DX: F10.230 Alcohol dependence with withdrawal, uncomplicated (principal); F17.210 Nicotine dependence, cigarettes, uncomplicated; F41.9 Anxiety disorder, unspecified; F32.9 Major depressive disorder, single episode, unspecified; I10 Essential (primary) hypertension; L40.9 Psoriasis, unspecified; B18.2 Chronic viral hepatitis C; H26.8 Other specified cataract; K74.60 Unspecified cirrhosis of liver
CPT/HCPCS: 36415; 71046-TC-FY; 80053; 85027; 86593